=== PATIENT | female | born 1985 | race African-American/Black ===

== ENCOUNTER 2016-08-16 14:58 | Emergency (ER) | payer OTHER ==
[~2016-08-16] VITALS: Ht 182.9 cm; Wt 66.0 kg
[~2016-08-16 14:58] MED LIST: CYCL-36 PO; NAPR500 PO
[2016-08-16 15:00] VITALS: BP 120/76; PULSE 118; RESP 22; TEMP 99.6; O2SAT 97
--- NOTE | 2016-08-16 15:12 | PD ---
HPI Chief Complaint: cough Time Seen by Provider: 14:59 Travel History International Travel<30 days: No Contact w/Intl Traveler<30days: No Traveled to known affect area: No History of Present Illness HPI The patient is a 31-year-old [place] female who presents to the emergency department via EMS for cough. Patient states her symptoms started about 3 weeks ago when she developed cough and cold-like symptoms which she felt was the flu. The patient had a headache, sore throat, dry nonproductive cough, body aches. Patient had 4 days of fevers which have resolved. However, the patient has had a persistent sore throat and cough. Patient states the cough is mostly dry and nonproductive, occasionally will produce white sputum. She also complains of mild shortness of breath and some anterior chest wall pain she attributes to coughing. The patient denies any history of recent travel, hospitalizations, surgeries, or prolonged travel. The patient denies any history of pulmonary embolism or DVT. The patient was born in [place] but moved to the at an early age. She denies any known history of tuberculosis or TB contacts. The patient denies any recent tobacco use, quit smoking years ago. She denies any current fever, has had intermittent chills and sweats with her cough. PFSH Past Medical History Diminished Hearing: No Social History Alcohol Use: Yes (occasionally) Tobacco Use: No Substance Use: No Allergies-Medications (Allergen,Severity, Reaction): Coded Allergies: No Known Allergies (Unverified , 08/16/16) Reported Meds & Prescriptions Reported Meds & Active Scripts Active Reported Ventolin Hfa 18 GM Inh (Albuterol Sulfate) 90 Mcg/Act Aer 2 Puff INH Q4H PRN Review of Systems Except as stated in HPI: all other systems reviewed are Neg General / Constitutional: Positive: Fever (fever 3 weeks ago for 4 days which has resolved), Chills HENT: Positive: Lightheadedness (secondary to coughing), Sore Throat Cardiovascular: Positive: Chest Pain or Discomfort Respiratory: Positive: Cough, Shortness of Breath, No: Hemoptysis Gastrointestinal: No: Nausea, Vomiting, Abdominal Pain Musculoskeletal: No: Edema Neurologic: No: Dizziness Physical Exam Narrative GENERAL: Awake, alert, pleasant 31-year-old female who appears her stated age and is in no acute respiratory distress, however, does have a persistent cough. SKIN: Focused skin assessment warm/dry. Slightly diaphoretic in the posterior aspect along the back. HEAD: Atraumatic. Normocephalic. EYES: Pupils equal and round. No scleral icterus. No injection or drainage. ENT: No nasal bleeding or discharge. Oropharynx reveals erythema without exudate. NECK: Trachea midline. No JVD. CARDIOVASCULAR: Regular, tachycardic with a heart rate of 105. RESPIRATORY: No accessory muscle use. Significant coughing with a few crackles and wheezes in the base. GASTROINTESTINAL: Abdomen soft, non-tender, nondistended. No rebound tenderness. MUSCULOSKELETAL: No obvious deformities. No clubbing. No cyanosis. No edema. NEUROLOGICAL: Awake and alert. No obvious cranial nerve deficits. Motor grossly within normal limits. Normal speech. PSYCHIATRIC: Appropriate mood and affect; insight and judgment normal. Data Data Last Documented VS Vital Signs Date Time Temp Pulse Resp B/P Pulse Ox O2 Delivery O2 Flow Rate FiO2 08/16/16 17:27 116 20 96/77 99 Room Air 08/16/16 15:00 99.6 Orders Complete Blood Count With Diff (08/16/16 15:05) Comprehensive Metabolic Panel (08/16/16 15:05) B-Type Natriuretic Peptide (08/16/16 15:05) D-Dimer (08/16/16 15:05) Magnesium (Mg) (08/16/16 15:05) Ckmb (Isoenzyme) Profile (08/16/16 15:05) Troponin I (08/16/16 15:05) Iv Access Insert/Monitor (08/16/16 15:05) Electrocardiogram (08/16/16 15:05) Ecg Monitoring (08/16/16 15:05) Oximetry (08/16/16 15:05) Oxygen Administration (08/16/16 15:05) Chest, Single Ap (08/16/16 15:05) Sodium Chloride 0.9% Flush (Ns Flush) (08/16/16 15:15) Methylprednisolone So Succ Inj (Solumedr (08/16/16 15:15) Albuterol-Ipratropium Neb (Duoneb Neb) (08/16/16 15:15) Lidocaine Pf 4% Neb (Lidocaine Pf 4% Neb (08/16/16 15:15) Sodium Chlor 0.9% 1000 Ml Inj (Ns 1000 M (08/16/16 15:15) Ed Urine Pregnancytest Poc (08/16/16 15:06) Ketorolac Inj (Toradol Inj) (08/16/16 15:30) CKMB (08/16/16 15:25) CKMB% (08/16/16 15:25) Ct Pulmonary Angiogram (08/16/16 ) Bordetella By Pcr (08/16/16 16:25) Iohexol 350 Inj (Omnipaque 350 Inj) (08/16/16 17:22) Labs Laboratory Tests Test 08/16/16 15:25 White Blood Count 11.9 TH/MM3 Red Blood Count 4.25 MIL/MM3 Hemoglobin 12.6 GM/DL Hematocrit 37.5 % Mean Corpuscular Volume 88.1 FL Mean Corpuscular Hemoglobin 29.8 PG Mean Corpuscular Hemoglobin 33.8 % Concent Red Cell Distribution Width 12.8 % Platelet Count 360 TH/MM3 Mean Platelet Volume 9.4 FL Neutrophils (%) (Auto) 64.8 % Lymphocytes (%) (Auto) 22.9 % Monocytes (%) (Auto) 7.1 % Eosinophils (%) (Auto) 4.1 % Basophils (%) (Auto) 1.1 % Neutrophils # (Auto) 7.8 TH/MM3 Lymphocytes # (Auto) 2.7 TH/MM3 Monocytes # (Auto) 0.8 TH/MM3 Eosinophils # (Auto) 0.5 TH/MM3 Basophils # (Auto) 0.1 TH/MM3 CBC Comment DIFF FINAL Differential Comment D-Dimer Quantitative (PE/DVT) 0.70 MG/L FEU Sodium Level 143 MEQ/L Potassium Level 4.2 MEQ/L Chloride Level 108 MEQ/L Carbon Dioxide Level 21.7 MEQ/L Anion Gap 13 MEQ/L Blood Urea Nitrogen 7 MG/DL Creatinine 0.75 MG/DL Estimat Glomerular Filtration 110 ML/MIN Rate Random Glucose 77 MG/DL Calcium Level 8.2 MG/DL Magnesium Level 2.1 MG/DL Total Bilirubin 0.2 MG/DL Aspartate Amino Transf 14 U/L (AST/SGOT) Alanine Aminotransferase 18 U/L (ALT/SGPT) Alkaline Phosphatase 41 U/L Total Creatine Kinase 325 U/L Creatine Kinase MB 1.0 NG/ML Creatine Kinase MB % 0.3 % Troponin I LESS THAN 0.02 NG/ML B-Type Natriuretic Peptide 22 PG/ML Total Protein 7.2 GM/DL Albumin 3.2 GM/DL MDM Medical Decision Making Medical Screen Exam Complete: Yes Emergency Medical Condition: Yes Medical Record Reviewed: Yes Interpretation(s) EKG reveals sinus tachycardia with a heart rate of 125. Poor R-wave progression. Nonspecific T wave changes. Laboratory Tests Test 08/16/16 15:25 White Blood Count 11.9 TH/MM3 Red Blood Count 4.25 MIL/MM3 Hemoglobin 12.6 GM/DL Hematocrit 37.5 % Mean Corpuscular Volume 88.1 FL Mean Corpuscular Hemoglobin 29.8 PG Mean Corpuscular Hemoglobin 33.8 % Concent Red Cell Distribution Width 12.8 % Platelet Count 360 TH/MM3 Mean Platelet Volume 9.4 FL Neutrophils (%) (Auto) 64.8 % Lymphocytes (%) (Auto) 22.9 % Monocytes (%) (Auto) 7.1 % Eosinophils (%) (Auto) 4.1 % Basophils (%) (Auto) 1.1 % Neutrophils # (Auto) 7.8 TH/MM3 Lymphocytes # (Auto) 2.7 TH/MM3 Monocytes # (Auto) 0.8 TH/MM3 Eosinophils # (Auto) 0.5 TH/MM3 Basophils # (Auto) 0.1 TH/MM3 CBC Comment DIFF FINAL Differential Comment D-Dimer Quantitative (PE/DVT) 0.70 MG/L FEU Sodium Level 143 MEQ/L Potassium Level 4.2 MEQ/L Chloride Level 108 MEQ/L Carbon Dioxide Level 21.7 MEQ/L Anion Gap 13 MEQ/L Blood Urea Nitrogen 7 MG/DL Creatinine 0.75 MG/DL Estimat Glomerular Filtration 110 ML/MIN Rate Random Glucose 77 MG/DL Calcium Level 8.2 MG/DL Magnesium Level 2.1 MG/DL Total Bilirubin 0.2 MG/DL Aspartate Amino Transf 14 U/L (AST/SGOT) Alanine Aminotransferase 18 U/L (ALT/SGPT) Alkaline Phosphatase 41 U/L Total Creatine Kinase 325 U/L Creatine Kinase MB 1.0 NG/ML Creatine Kinase MB % 0.3 % Troponin I LESS THAN 0.02 NG/ML B-Type Natriuretic Peptide 22 PG/ML Total Protein 7.2 GM/DL Albumin 3.2 GM/DL Last Impressions Chest X-Ray 08/16/16 1505 Signed Impressions: Service Date/Time: Tuesday, August 16, 2016 15:53 - CONCLUSION: 1. No active disease. Mild scoliosis. Alvaro Rubalcava MD CT Angiography 08/16/16 0000 Signed Impressions: Service Date/Time: Tuesday, August 16, 2016 17:08 - CONCLUSION: 1. Negative for pulmonary embolic disease. 2. Fairly extensive peribronchial thickening in both lungs especially at the lung bases with focal areas of airspace disease in the right middle lobe and lingula only measuring around 1 cm in diameter but likely inflammatory. Alvaro Rubalcava MD Differential Diagnosis Differential diagnosis includes pneumonitis, pneumonia, bronchitis, reactive airway disease, pulmonary embolism, tuberculosis, pleural effusion, BOOP. Narrative Course IV was established, labs are drawn and sent, and the patient was placed on cardiac telemetry monitoring and continuous pulse oximetry monitoring. EKG was ordered and interpreted. Chest x-ray was obtained. The patient was administered Solu-Medrol 125 mg intravenously and duo nebs with respiratory lidocaine. Chest x-ray reveals peribronchial cuffing but no obvious infiltrate. D-dimer was positive, therefore, CT pulmonary angiogram was ordered. CT pulmonary angiogram reveals inflammatory changes and peribronchial cuffing, also likely bronchitis and inflammatory nature. Patient did have a persisting cough, no whooping quality, but very intense. Therefore, pertussis PCR nasal swab was sent. The patient will be placed on prednisone, Zithromax, Phenergan with codeine, and albuterol inhaler. She is advised to follow-up with her primary physician and return if symptoms worsen or progress. Diagnosis Primary Impression: Bronchitis Patient Instructions: General Instructions Additional Instructions: Medications as directed. Follow-up with her primary physician. Return if symptoms worsen or progress. Med/Other Pt SpecificInfo: Prescription(s) given Scripts Promethazine-Codeine Liq 6.25-10 Mg/5 Ml Syrp10 Ml PO Q6H PRN (COUGH AND/OR COLD SYMPTOMS) #480 ML Ref 0 Prov:Juanjose Blackwell MD 08/16/16 Albuterol 18 GM Inh (Ventolin Hfa 18 GM Inh)90 Mcg/Act Aer2 Puff INH Q6H PRN ( SHORTNESS OF BREATH) #1 INHALER Ref 0 Prov:Juanjose Blackwell MD 08/16/16 Azithromycin (Zithromax Z-Van)250 Mg Zpty930 Mg PO DIRECTED #1 DSPK Ref 0 500 MG (2 tabs) day 1, then 1 tab days 2-5. Prov:Juanjose Blackwell MD 08/16/16 Methylprednisolone Dosepak (Medrol Dosepak)4 Mg Dspk4 Mg PO DIRECTED #1 DSPK Ref 0 Per Pharmacist direction Prov:Juanjose Blackwell MD 08/16/16 Disposition: 01 DISCHARGE HOME Condition: Stable Juanjose Blackwell MD Aug 16, 2016 15:12
[2016-08-16] MEDS ORDERED: RESP: LIDOCAINE HCL 4% PF 5 ML NEB NEB ONE (15:15)
[2016-08-16] MEDS: RESP: ALBUTEROL 2.5 MG/IPRATROPIUM 0.5 MG NEB (SCH) INH ×2 (15:15→15:16)
[2016-08-16] MEDS ORDERED: SODIUM CHLOR 0.9% 1000 ML INJ 1,000 ML IV ONE (15:15)
[2016-08-16] MEDS ORDERED: SODIUM CHLORIDE 0.9% FLUSH 10 ML FLUSH IVF PRN (15:15)
[2016-08-16] MEDS ORDERED: methylPREDNISolone SOD SUCC 125 MG/2 ML VIAL IVP ONE (15:15)
[2016-08-16] MEDS ORDERED: VENTAER INH ×2 (15:16→17:47)
[2016-08-16] MEDS ORDERED: KETOROLAC TROMETHAMINE 30 MG/ML (IVP) VIAL IV PUSH ONE (15:30)
[2016-08-16 15:40] VITALS: RESP 22; O2SAT 97
[2016-08-16 15:59] LABS: CHLORIDE 108 MEQ/L (98-107); POTASSIUM 4.2 MEQ/L (3.5-5.1); SODIUM (NA) 143 MEQ/L (136-145)
[2016-08-16 16:00] VITALS: BP 101/68; PULSE 116; RESP 18; O2SAT 98
[2016-08-16 16:03] LABS: ANION GAP 13 MEQ/L (5-15); BICARBONATE 21.7 MEQ/L (21.0-32.0); BLOOD UREA NITROGEN 7 MG/DL (7-18); MAGNESIUM 2.1 MG/DL (1.5-2.5)
[2016-08-16 16:06] LABS: ALT (GPT) 18 U/L (10-53); AST (GOT) 14 U/L (15-37); AUTOMATED NEUTROPHIL # 7.8 TH/MM3 (1.8-7.7); BASOPHIL # 0.1 TH/MM3 (0-0.2); BASOPHIL % 1.1 % (0.0-2.0); EOSINOPHIL # 0.5 TH/MM3 (0-0.4); EOSINOPHIL % 4.1 % (0.0-4.0); GLOMERULAR FILTRATION RATE 110 ML/MIN (>89); HEMATOCRIT 37.5 % (35.0-46.0); HEMO FLAGS DIFF FINAL; LYMPH % 22.9 % (9.0-44.0); LYMPHOCYTE # 2.7 TH/MM3 (1.0-4.8); MEAN CELL VOLUME 88.1 FL (80.0-100.0); MEAN CORPUSCULAR HEMOGLOBIN 29.8 PG (27.0-34.0); MEAN CORPUSCULAR HGB CONC 33.8 % (32.0-36.0); MONO % 7.1 % (0.0-8.0); NEUT % 64.8 % (16.0-70.0); PLATELET COUNT 360 TH/MM3 (150-450); RED BLOOD COUNT 4.25 MIL/MM3 (4.00-5.30); RED CELL DISTRIBUTION WIDTH 12.8 % (11.6-17.2); WHITE BLOOD COUNT 11.9 TH/MM3 (4.0-11.0)
[2016-08-16 16:08] LABS: TOTAL BILIRUBIN ADULT 0.2 MG/DL (0.2-1.0)
[2016-08-16 16:09] LABS: ALKALINE PHOSPHATASE 41 U/L (45-117); CREATINE KINASE 325 U/L (26-192)
--- NOTE | 2016-08-16 16:27 | RADHPO ---
EXAM DATE/TIME: 08/16/2016 15:53 [facility] COMPARISON: No previous studies available for comparison. INDICATIONS : Short of breath. MEDICAL HISTORY : None. SURGICAL HISTORY : None. ENCOUNTER: Initial ACUITY: 1 day PAIN SCORE: 7/10 LOCATION: Bilateral chest FINDINGS: A single view of the chest demonstrates the lungs to be symmetrically aerated without evidence of mas s, infiltrate or effusion. The cardiomediastinal contours are unremarkable. Osseous structures are intact. CONCLUSION: 1. No active disease. Mild scoliosis. Alvaro Rubalcava MD on August 16, 2016 at 16:24 Board Certified Radiologist. This report was verified electronically.
[2016-08-16] MEDS ORDERED: IOHEXOL 350 MG/ML 10 ML VIAL (for RAD DIAG) IV ONE (17:22)
[2016-08-16 17:27] VITALS: BP 96/77; PULSE 116; RESP 20; O2SAT 99
--- NOTE | 2016-08-16 17:34 | RADHPO ---
EXAM DATE/TIME: 08/16/2016 17:08 [facility] COMPARISON: No previous studies available for comparison. INDICATIONS : Persistent cough. IV CONTRAST: 65 cc Omnipaque 350 (iohexol) IV RADIATION DOSE: 8.28 CTDIvol (mGy) MEDICAL HISTORY : None SURGICAL HISTORY : None. ENCOUNTER: Initial ACUITY: 3 weeks PAIN SCALE: 0/10 LOCATION: chest TECHNIQUE: Volumetric scanning of the chest was performed using a pulmonary embolism protocol MIP images were re constructed. Using automated exposure control and adjustment of the mA and/or kV according to patien t size, radiation dose was kept as low as reasonably achievable to obtain optimal diagnostic quality images. FINDINGS: No filling defects are seen to suggest embolic disease. There is fairly extensive peribronchial thick ening present in both lungs, especially in the lower lobes. They are approximately 1 cm focal areas o f airspace disease in right middle lobe and left lower lobe, probably inflammatory in nature given th e patient's age and associated peribronchial thickening. No pleural or pericardial effusion. Borderline enlarged hilar lymph nodes bilaterally. No acute findi ngs in the upper abdomen. CONCLUSION: 1. Negative for pulmonary embolic disease. 2. Fairly extensive peribronchial thickening in both lungs especially at the lung bases with focal ar eas of airspace disease in the right middle lobe and lingula only measuring around 1 cm in diameter b ut likely inflammatory. Alvaro Rubalcava MD on August 16, 2016 at 17:27 Board Certified Radiologist. This report was verified electronically.
[2016-08-16] MEDS ORDERED: PROM6.256 PO (17:47)
[2016-08-16] MEDS ORDERED: MEDR4PAK PO (17:47)
[2016-08-16] MEDS ORDERED: ZITHTAB PO (17:47)
--- NOTE | 2016-08-17 11:46 | EKG ---
Date Performed: 08/16/2016 Time Performed: 15:42:20 PTAGE: 31 years EKG: Sinus tachycardia Poor R wave progression - probable normal variant Anterior T wave changes are normal for age and race Borderline ECG NO PREVIOUS TRACING DOCTOR: Carlos Tan Interpretating Date/Time 08/17/2016 11:44:59
[2016-08-18 18:51] LABS: B PARAPERTUSSIS PCR RESULT Negative (()); B PERTUSSIS DNA Negative (())
[2016-09-04] MEDS ORDERED: IPRASOL INH ×2 (10:48→11:58)
[2016-09-04] MEDS ORDERED: NEBUKIT5 (10:48)
[2016-09-04] MEDS ORDERED: NEBULIZER/ADULT1 KIT (10:48)
[2016-09-04] MEDS ORDERED: VENTAER INH ×2 (10:50→10:51)
[2016-09-04] MEDS ORDERED: LEVO750T33 PO (11:14)
== END 2016-08-16 17:57 | disposition home or self-care (01) ==
LOC: PHED 14:58
DX: J40 Bronchitis, not specified as acute or chronic (principal); R00.0 Tachycardia, unspecified; R51 Headache; R06.02 Shortness of breath
CPT/HCPCS: 71010; 71275; 80053; 82550; 82552; 83735; 83880; 84484; 84703; 85025; 85379; 87798; 93005; 94640; 94664; 96361; 96374; 96375; 99284; J1885; J2930; J7030; Q9967